=== PATIENT | female | born 1980 | race Caucasian/White ===

== ENCOUNTER → 2020-04-23 | Outpatient (CLI) | payer BC, OTHER ==
[~2020-04-23] MED LIST: AUGMENTIN 875-1 EACH PO; DIFLUCAN150 MG PO; FLOMAX0.4 MG PO; NORCO 5-325 TA1 EACH PO; SYNTHROID100 MCG PO; ZOFRAN ODT 4 MG4 MG PO; ZOFRAN4 MG PO
== END ==
LOC: RAD 14:30
DX: R07.81 Pleurodynia (principal); R91.8 Other nonspecific abnormal finding of lung field
CPT/HCPCS: 71046

== ENCOUNTER → 2020-05-08 | Outpatient (CLI) | payer BC, OTHER | LOC: EMI 16:45 | DX: G54.2 Cervical root disorders, not elsewhere classified (principal); M48.02 Spinal stenosis, cervical region | CPT/HCPCS: 72141 ==

== ENCOUNTER → 2021-05-17 | Outpatient (CLI) | payer BC | LOC: KOH-I 09:36 | DX: B97.21 SARS-associated coronavirus as the cause of diseases classified elsewhere (principal) | CPT/HCPCS: 71046 ==